=== PATIENT | male | born 1950 | race Caucasian/White ===

== ENCOUNTER 2016-03-09 10:16 | Observation (INO) | payer MEDICARE, OTHER ==
[2016-03-09] VITALS (9 sets, daily range): BP systolic 116–140; BP diastolic 62–79; PULSE 66–82; TEMP 97.9–98.9
[~2016-03-09] VITALS: Ht 177.8 cm; Wt 87.7 kg
[2016-03-09] MEDS ORDERED: CARDIZEM 60MG T60 MG PO (12:10)
[2016-03-09] MEDS ORDERED: SYNTHROID0.05 MG/TA PO (12:11)
[2016-03-09] MEDS ORDERED: MAG-OX 400400 MG/TAB PO (12:11)
[2016-03-09] MEDS ORDERED: ATIVAN 1MG T1 MG/TAB PO (12:11)
[2016-03-09] MEDS ORDERED: PRILOSEC 20MG20 MG PO (12:12)
[2016-03-09] MEDS ORDERED: PRAVACHOL10 MG PO (12:12)
[2016-03-09] MEDS ORDERED: NYAMYC100000 U/G TP (12:13)
[2016-03-09] MEDS ORDERED: DIGITEK0.25 MG PO (12:13)
[2016-03-09] MEDS ORDERED: GLUCOPHAGE500 MG/TAB PO (12:15)
[2016-03-09] MEDS ORDERED: XARELTO20 MG PO (12:16)
[2016-03-09] MEDS ORDERED: VENTOLIN0.09 MG IH (12:17)
[2016-03-09] MEDS ORDERED: RT SPIRIVA18 MCG IH (12:17)
[2016-03-09] MEDS ORDERED: RT ADVAIR 228 DISKUS IH (12:17)
[2016-03-09] MEDS ORDERED: IPRATROPIUM BROM3 M1 IH (12:18)
[2016-03-10 00:13] VITALS: BP 154/67; PULSE 86; TEMP 98.2
[2016-03-10 05:02] VITALS: BP 154/61; PULSE 83; TEMP 98.1
[2016-03-10 07:21] LABS: HEMATOCRIT 37.4 % (42.0-52.0); MEAN CELL VOLUME 82 fl (80.0-100.0); MEAN CORPUSCULAR HEMOGLOBIN 26 pg (27.0-31.0); MEAN CORPUSCULAR HGB CONC 32 g/dl (33.0-37.0); MEAN PLATELET VOLUME 9.1 fl (7.4-10.4); PLATELET COUNT 327 K/mm3 (130-400); RED BLOOD COUNT 4.56 M/mm3 (4.20-5.60); REDCELL DISTRIBUTION WIDTH-CV 13.7 % (11.5-14.5); WHITE BLOOD COUNT 11.1 K/mm3 (4.8-10.8)
[2016-03-10 07:39] LABS: HEMOGLOBIN 11.8 g/dl (13.5-18.0)
[2016-03-10 07:40] LABS: CALCIUM 9.1 mg/dL (8.4-10.2); CREATININE, serum 0.79 mg/dL (0.66-1.25); POTASSIUM 4.1 mmol/L (3.4-5.0)
[2016-03-10 09:44] VITALS: BP 144/70; PULSE 82; TEMP 97.9
[2016-03-10 13:39] VITALS: BP 129/6; PULSE 83; TEMP 97.8
[2016-03-10 18:00] VITALS: BP 134/62; PULSE 78; TEMP 98.1
[2016-03-10 21:45] VITALS: BP 114/54; PULSE 68; TEMP 98.5
[2016-03-11 01:44] VITALS: BP 131/60; PULSE 72; TEMP 98.5
[2016-03-11 04:44] VITALS: BP 132/70; PULSE 83; TEMP 97.2
[2016-03-11 07:17] LABS: BASO % 0.4 % (0.0-2.0); EOS # 0.3 (0.0-0.7); EOS % 3.1 % (0-4.0); GRAN # 7.3 (1.4-6.5); GRAN % 73.6 % (42.2-75.2); HEMATOCRIT 40.5 % (42.0-52.0); HEMOGLOBIN 12.6 g/dl (13.5-18.0); LYMPH # 1.3 (1.2-3.4); LYMPH % 13.5 % (20.0-51.0); MEAN CELL VOLUME 83 fl (80.0-100.0); MEAN CORPUSCULAR HEMOGLOBIN 26 pg (27.0-31.0); MEAN CORPUSCULAR HGB CONC 31 g/dl (33.0-37.0); MEAN PLATELET VOLUME 8.8 fl (7.4-10.4); MONO # 0.9 (0.1-0.6); MONO % 8.8 % (1.7-9.3); PLATELET COUNT 375 K/mm3 (130-400); RED BLOOD COUNT 4.89 M/mm3 (4.20-5.60); REDCELL DISTRIBUTION WIDTH-CV 13.9 % (11.5-14.5); WHITE BLOOD COUNT 9.9 K/mm3 (4.8-10.8)
[2016-03-11 07:40] LABS: CALCIUM 9.4 mg/dL (8.4-10.2); CREATININE, serum 0.83 mg/dL (0.66-1.25); POTASSIUM 4.1 mmol/L (3.4-5.0)
[2016-03-11 10:16] VITALS: BP 110/54; PULSE 76; TEMP 98.1
[2016-03-11 13:26] VITALS: BP 100/63; PULSE 88; TEMP 98.4
[2016-03-11] MEDS ORDERED: NORCO 325 MG-51 TAB PO (15:05)
[2016-03-11] MEDS ORDERED: PYRIDIUM 100MG100 MG PO (15:06)
== END 2016-03-11 16:00 | disposition home or self-care (01) ==
LOC: SDCO 10:16 → SURG 15:33 → SDCO 03-10 10:17 → SURG 03-10 10:20
PROVIDERS: Urology
DX: N40.1 Benign prostatic hyperplasia with lower urinary tract symptoms (principal); R33.8 Other retention of urine; R31.9 Hematuria, unspecified; N39.498 Other specified urinary incontinence; I10 Essential (primary) hypertension; E11.9 Type 2 diabetes mellitus without complications; F17.210 Nicotine dependence, cigarettes, uncomplicated; E78.5 Hyperlipidemia, unspecified; J44.9 Chronic obstructive pulmonary disease, unspecified; I48.0 Paroxysmal atrial fibrillation; Z79.84 Long term (current) use of oral hypoglycemic drugs
CPT/HCPCS: OP; 99204; 99214; 99222; 99222-AI; 99232-AI; G0378; J0690; J1815; J2250; J2704; J7030; J7512

== ENCOUNTER 2016-09-14 11:53 | Day surgery (SDC) | payer MEDICARE, OTHER ==
[~2016-09-14] VITALS: Ht 177.8 cm; Wt 88.9 kg
[~2016-09-14 11:53] MED LIST: ATIVAN 1MG T1 MG/TAB PO; CARDIZEM 60MG T60 MG PO; DIGITEK0.25 MG PO; GLUCOPHAGE500 MG/TAB PO; IPRATROPIUM BROM3 M1 IH; MAG-OX 400400 MG/TAB PO; NORCO 325 MG-51 TAB PO; NYAMYC100000 U/G TP; PRAVACHOL10 MG PO; PRILOSEC 20MG20 MG PO; PYRIDIUM 100MG100 MG PO; RT ADVAIR 228 DISKUS IH; RT SPIRIVA18 MCG IH; SYNTHROID0.05 MG/TA PO; VENTOLIN0.09 MG IH; XARELTO20 MG PO
[2016-09-14 12:25] VITALS: BP 126/81; PULSE 72; TEMP 97.8
[2016-09-14 13:01] LABS: HEMATOCRIT 32.1 % (42.0-52.0); HEMOGLOBIN 9.8 g/dl (13.5-18.0); MEAN CELL VOLUME 78 fl (80.0-100.0); MEAN CORPUSCULAR HEMOGLOBIN 24 pg (27.0-31.0); MEAN CORPUSCULAR HGB CONC 31 g/dl (33.0-37.0); MEAN PLATELET VOLUME 9.7 fl (7.4-10.4); PLATELET COUNT 325 K/mm3 (130-400); RED BLOOD COUNT 4.12 M/mm3 (4.20-5.60); REDCELL DISTRIBUTION WIDTH-CV 15.3 % (11.5-14.5); WHITE BLOOD COUNT 7.1 K/mm3 (4.8-10.8)
[2016-09-14] MEDS ORDERED: PRILOSEC 20MG20 MG PO (13:09)
[2016-09-14] MEDS ORDERED: LEVOXYL0.05 MG PO (13:10)
[2016-09-14] MEDS ORDERED: ATIVAN 1MG T1 MG/TAB PO (13:10)
[2016-09-14] MEDS ORDERED: TAMBOCOR 1100 MG/TAB PO (13:11)
[2016-09-14] MEDS ORDERED: CARDIZEM 60MG T60 MG PO (13:12)
[2016-09-14] MEDS ORDERED: MAG-OX 400400 MG/TAB PO (13:12)
[2016-09-14] MEDS ORDERED: XARELTO20 MG PO (13:13)
[2016-09-14] MEDS ORDERED: LANOXIN 0.25M0.25 MG PO (13:18)
[2016-09-14] MEDS ORDERED: PRAVACHOL10 MG PO (13:19)
[2016-09-14] MEDS ORDERED: ULTRAM 50MG TAB50 MG PO (13:22)
[2016-09-14] MEDS ORDERED: NITROSTAT0.4 MG/TAB SL (13:22)
[2016-09-14] MEDS ORDERED: FLEXERIL 1010 MG/TAB PO (13:22)
[2016-09-14] MEDS ORDERED: DAYPRO 600600 MG PO (13:22)
[2016-09-14] MEDS ORDERED: MUCINEX 60600 MG/TA1 PO (13:23)
[2016-09-14] MEDS ORDERED: ATARAX 10MG10 MG/TAB PO (13:23)
[2016-09-14] MEDS ORDERED: CLARITIN 1010 MG/TAB PO (13:24)
[2016-09-14] MEDS ORDERED: GLUCOSE4 G1 PO (13:24)
[2016-09-14 13:39] LABS: INR 1.5 (0.8-3.0); PROTHROMBIN TIME 17.2 SECONDS (9.7-12.8)
[2016-09-14 13:45] LABS: CALCIUM 8.9 mg/dL (8.4-10.2); CREATININE, serum 0.97 mg/dL (0.66-1.25); POTASSIUM 4.2 mmol/L (3.4-5.0)
[2016-09-14 14:30] VITALS: BP 127/75; PULSE 72
[2016-09-14 14:45] VITALS: BP 135/74; PULSE 70
[2016-09-14 15:00] VITALS: BP 127/69; PULSE 71
[2016-09-14 15:15] VITALS: BP 129/89; PULSE 68
[2016-09-14 15:30] VITALS: BP 127/75; PULSE 70
== END 2016-09-14 16:08 | disposition home or self-care (01) ==
LOC: COL.CAR 11:53
PROVIDERS: Internal Medicine Interventional Cardiology
DX: I48.0 Paroxysmal atrial fibrillation (principal); J44.9 Chronic obstructive pulmonary disease, unspecified; R60.0 Localized edema; I73.9 Peripheral vascular disease, unspecified; Z95.5 Presence of coronary angioplasty implant and graft; I25.2 Old myocardial infarction; I10 Essential (primary) hypertension; E78.5 Hyperlipidemia, unspecified; I25.10 Atherosclerotic heart disease of native coronary artery without angina pectoris; G47.33 Obstructive sleep apnea (adult) (pediatric); F17.210 Nicotine dependence, cigarettes, uncomplicated; K21.9 Gastro-esophageal reflux disease without esophagitis; E07.9 Disorder of thyroid, unspecified; E11.9 Type 2 diabetes mellitus without complications; N40.0 Benign prostatic hyperplasia without lower urinary tract symptoms; Z90.49 Acquired absence of other specified parts of digestive tract; Z90.79 Acquired absence of other genital organ(s)
CPT/HCPCS: G9654; J2250; J2704; J3010

== ENCOUNTER 2016-10-01 05:49 | Day surgery (SDC) | payer MEDICARE, OTHER ==
[~2016-10-01] VITALS: Ht 177.8 cm; Wt 89.0 kg
[2016-10-01] VITALS (854 sets, daily range): BP systolic 101–139; BP diastolic 66–110; PULSE 80–116; TEMP 97.4–98.5; O2SAT 73–100
[~2016-10-01 05:49] MED LIST changes: +ATARAX 10MG10 MG/TAB PO; +CLARITIN 1010 MG/TAB PO; +DAYPRO 600600 MG PO; +FLEXERIL 1010 MG/TAB PO; +GLUCOSE4 G1 PO; +LANOXIN 0.25M0.25 MG PO; +LEVOXYL0.05 MG PO; +MUCINEX 60600 MG/TA1 PO; +NITROSTAT0.4 MG/TAB SL; +TAMBOCOR 1100 MG/TAB PO; +ULTRAM 50MG TAB50 MG PO
[2016-10-01 06:37] LABS: MEAN CELL VOLUME 78 fl (80.0-100.0); MEAN CORPUSCULAR HGB CONC 29 g/dl (33.0-37.0); PLATELET COUNT 393 K/mm3 (130-400); RED BLOOD COUNT 4.04 M/mm3 (4.20-5.60); REDCELL DISTRIBUTION WIDTH-CV 15.4 % (11.5-14.5); WHITE BLOOD COUNT 7.2 K/mm3 (4.8-10.8)
[2016-10-01 06:38] LABS: HEMATOCRIT 31.6 % (42.0-52.0); HEMOGLOBIN 9.1 g/dl (13.5-18.0); MEAN CORPUSCULAR HEMOGLOBIN 23 pg (27.0-31.0)
[2016-10-01 06:45] LABS: CREATININE, serum 1.03 mg/dL (0.66-1.25); POTASSIUM 4.2 mmol/L (3.4-5.0)
[2016-10-01 06:48] LABS: INR 1.1 (0.8-3.0); PROTHROMBIN TIME 12.6 SECONDS (9.7-12.8)
[2016-10-02] VITALS (492 sets, daily range): BP systolic 100–120; BP diastolic 65–95; PULSE 104–108; TEMP 97.9–98.6; O2SAT 86–100
[2016-10-02 05:20] LABS: BASO # 0.1 (0.0-0.2); BASO % 0.7 % (0.0-2.0); EOS # 0.1 (0.0-0.7); EOS % 1.7 % (0-4.0); GRAN # 6.1 (1.4-6.5); GRAN % 79.6 % (42.2-75.2); HEMOGLOBIN 9.6 g/dl (13.5-18.0); LYMPH # 0.7 (1.2-3.4); LYMPH % 9.2 % (20.0-51.0); MEAN CELL VOLUME 77 fl (80.0-100.0); MEAN CORPUSCULAR HEMOGLOBIN 22 pg (27.0-31.0); MEAN CORPUSCULAR HGB CONC 29 g/dl (33.0-37.0); MEAN PLATELET VOLUME 8.7 fl (7.4-10.4); MONO # 0.7 (0.1-0.6); MONO % 8.5 % (1.7-9.3); PLATELET COUNT 395 K/mm3 (130-400); REDCELL DISTRIBUTION WIDTH-CV 15.3 % (11.5-14.5); WHITE BLOOD COUNT 7.7 K/mm3 (4.8-10.8)
[2016-10-02 05:32] LABS: CALCIUM 9.1 mg/dL (8.4-10.2); CREATININE, serum 0.98 mg/dL (0.66-1.25); POTASSIUM 4.5 mmol/L (3.4-5.0)
[2016-10-02] MEDS ORDERED: PLAVIX 75MG TAB75 MG PO (08:35)
[2016-10-02] MEDS ORDERED: ASPIRIN 81M81 MG/TA2 PO (08:35)
[2016-10-02] MEDS ORDERED: LIPITOR 80MG80 MG PO (08:37)
[2016-10-02] MEDS ORDERED: COREG 3.123.125 MG/T PO (10:14)
== END 2016-10-02 10:45 | disposition home or self-care (01) ==
LOC: COL.CAR 05:49 → ICU 09:05 → COL.CAR 10-02 10:45
PROVIDERS: Internal Medicine Interventional Cardiology
DX: I25.10 Atherosclerotic heart disease of native coronary artery without angina pectoris (principal); I48.0 Paroxysmal atrial fibrillation; J44.9 Chronic obstructive pulmonary disease, unspecified; I73.9 Peripheral vascular disease, unspecified; E78.5 Hyperlipidemia, unspecified; Z95.5 Presence of coronary angioplasty implant and graft; Z79.01 Long term (current) use of anticoagulants; Z79.84 Long term (current) use of oral hypoglycemic drugs
CPT/HCPCS: OP; C1725; C1760; C1769; C1874; C1887; C1894; C9600; J0583; J2250; J3010; Q9967

== ENCOUNTER 2016-11-29 11:55 | Day surgery (SDC) | payer MEDICARE, OTHER ==
[~2016-11-29] VITALS: Ht 177.8 cm; Wt 91.8 kg
[2016-11-29] VITALS (12 sets, daily range): BP systolic 115–133; BP diastolic 76–92; PULSE 92–115; TEMP 98.2
[~2016-11-29 11:55] MED LIST changes: +ASPIRIN 81M81 MG/TA2 PO; +COREG 3.123.125 MG/T PO; +LIPITOR 80MG80 MG PO; +PLAVIX 75MG TAB75 MG PO
[2016-11-29] MEDS ORDERED: RT ADVAIR HFA 1112 G IH (12:30)
[2016-11-29] MEDS ORDERED: ANORO IH (12:43)
[2016-11-29] MEDS ORDERED: ELIQUIS 5MG PO (12:48)
[2016-11-29 12:50] LABS: INR 1.5 (0.8-3.0); PROTHROMBIN TIME 17.2 SECONDS (9.7-12.8)
[2016-11-29 13:01] LABS: POTASSIUM 4.4 mmol/L (3.4-5.0)
[2016-11-29 13:36] LABS: THYROID STIMULATING HORMONE 1.09 uIU/mL (0.465-4.680)
[2016-11-29] MEDS ORDERED: MULTAQ400 MG PO (16:30)
== END 2016-11-29 16:56 | disposition home or self-care (01) ==
LOC: COL.CAR 11:55
PROVIDERS: Internal Medicine Interventional Cardiology
DX: I48.0 Paroxysmal atrial fibrillation (principal); I34.0 Nonrheumatic mitral (valve) insufficiency; I25.10 Atherosclerotic heart disease of native coronary artery without angina pectoris; J44.9 Chronic obstructive pulmonary disease, unspecified; I50.30 Unspecified diastolic (congestive) heart failure; Z79.01 Long term (current) use of anticoagulants; I11.0 Hypertensive heart disease with heart failure; E78.5 Hyperlipidemia, unspecified
CPT/HCPCS: J2250; J3010; J7030

== ENCOUNTER 2016-12-09 12:22 | Day surgery (SDC) | payer MEDICARE, OTHER ==
[~2016-12-09] VITALS: Ht 177.8 cm; Wt 77.4 kg
[~2016-12-09 12:22] MED LIST changes: +ANORO IH; +ELIQUIS 5MG PO; +MULTAQ400 MG PO; +RT ADVAIR HFA 1112 G IH
[2016-12-09 12:49] VITALS: BP 130/73; PULSE 85; TEMP 97.5
[2016-12-09] MEDS ORDERED: ALDACTONE 25MG25 M1 PO (13:17)
[2016-12-09] MEDS ORDERED: INCRUSE EL62.5 MCG/A IH (13:22)
[2016-12-09] MEDS ORDERED: CARDIZEM 60MG T60 MG PO (13:25)
[2016-12-09] MEDS ORDERED: FLEXERIL 1010 MG/TAB PO (13:26)
[2016-12-09 13:35] LABS: INR 1.5 (0.8-3.0); PROTHROMBIN TIME 16.6 SECONDS (9.7-12.8)
[2016-12-09 13:52] LABS: POTASSIUM 3.8 mmol/L (3.4-5.0)
[2016-12-09 14:23] LABS: THYROID STIMULATING HORMONE 1.7 uIU/mL (0.465-4.680)
[2016-12-09 15:28] VITALS: BP 118/61; PULSE 136; TEMP 98.3
[2016-12-09 21:24] VITALS: BP 116/65; PULSE 73; TEMP 98.1
[2016-12-10 00:39] VITALS: BP 115/55; PULSE 64; TEMP 97.6
[2016-12-10 04:10] VITALS: BP 119/61; PULSE 62; TEMP 98.1
[2016-12-10 07:40] VITALS: BP 124/62; PULSE 69; TEMP 97.6
[2016-12-10] MEDS ORDERED: PACERONE400 MG PO (09:57)
== END 2016-12-10 11:00 | disposition home or self-care (01) ==
LOC: SDCO 12:22 → MEDICAL 12:22 → INPTSU 13:21 → MEDICAL 13:26 → SDCO 12-10 11:00 → EDSTATUS 12-10 11:44
PROVIDERS: Internal Medicine Interventional Cardiology
DX: I48.91 Unspecified atrial fibrillation (principal); I25.10 Atherosclerotic heart disease of native coronary artery without angina pectoris; I10 Essential (primary) hypertension; J44.9 Chronic obstructive pulmonary disease, unspecified; E11.9 Type 2 diabetes mellitus without complications; I73.9 Peripheral vascular disease, unspecified; F17.210 Nicotine dependence, cigarettes, uncomplicated; I48.3 Typical atrial flutter; E78.5 Hyperlipidemia, unspecified; Z95.5 Presence of coronary angioplasty implant and graft; Z79.01 Long term (current) use of anticoagulants
CPT/HCPCS: G0378; G0379

== ENCOUNTER 2016-12-27 15:08 | Observation (INO) | payer MEDICARE, OTHER ==
[~2016-12-27] VITALS: Ht 177.8 cm; Wt 88.2 kg
[~2016-12-27 15:08] MED LIST changes: +ALDACTONE 25MG25 M1 PO; +INCRUSE EL62.5 MCG/A IH; +PACERONE400 MG PO
[2016-12-27 17:06] VITALS: BP 111/49; PULSE 90; TEMP 98.8
[2016-12-27 19:34] VITALS: BP 121/61; PULSE 104; TEMP 100.3
[2016-12-27 19:41] VITALS: BP 106/52; PULSE 43; TEMP 98.1
[2016-12-27 23:45] VITALS: BP 102/67; PULSE 70; TEMP 98.4
[2016-12-28] VITALS (13 sets, daily range): BP systolic 91–123; BP diastolic 49–93; PULSE 50–66; TEMP 97.6–97.9
[2016-12-28 07:09] LABS: BASO # 0.1 (0.0-0.2); BASO % 0.6 % (0.0-2.0); EOS % 0.5 % (0-4.0); GRAN # 5.9 (1.4-6.5); LYMPH # 1.7 (1.2-3.4); LYMPH % 19.8 % (20.0-51.0); MEAN CELL VOLUME 75 fl (80.0-100.0); MEAN CORPUSCULAR HGB CONC 27 g/dl (33.0-37.0); MEAN PLATELET VOLUME 9.6 fl (7.4-10.4); MONO # 0.8 (0.1-0.6); MONO % 9.7 % (1.7-9.3); PLATELET COUNT 393 K/mm3 (130-400); RED BLOOD COUNT 4.92 M/mm3 (4.20-5.60); REDCELL DISTRIBUTION WIDTH-CV 18.9 % (11.5-14.5)
[2016-12-28 07:10] LABS: HEMATOCRIT 36.8 % (42.0-52.0); MEAN CORPUSCULAR HEMOGLOBIN 20 pg (27.0-31.0)
[2016-12-28 07:25] LABS: INR 1.3 (0.8-3.0); PROTHROMBIN TIME 14.9 SECONDS (9.7-12.8)
[2016-12-28 07:32] LABS: ALBUMIN 3.7 gm/dL (3.5-5.0); BILIRUBIN,TOTAL 0.5 mg/dL (0.0-1.0); CALCIUM 8.7 mg/dL (8.4-10.2); CHOLESTEROL RISK RATIO 2.8; CREATININE, serum 1.2 mg/dL (0.66-1.25); POTASSIUM 4.8 mmol/L (3.4-5.0); TOTAL PROTEIN 6.8 gm/dL (6.4-8.2)
== END 2016-12-28 16:22 | disposition home or self-care (01) ==
LOC: MEDICAL 15:08
PROVIDERS: Internal Medicine Interventional Cardiology
DX: I48.92 Unspecified atrial flutter (principal); I25.10 Atherosclerotic heart disease of native coronary artery without angina pectoris; I10 Essential (primary) hypertension; Z95.5 Presence of coronary angioplasty implant and graft; Z79.01 Long term (current) use of anticoagulants; J44.9 Chronic obstructive pulmonary disease, unspecified; E78.5 Hyperlipidemia, unspecified
CPT/HCPCS: G0008; G0378; G0379; J0282; J7050; J7060

== ENCOUNTER 2017-01-27 11:47 | Day surgery (SDC) | payer MEDICARE, OTHER ==
[~2017-01-27] VITALS: Ht 177.8 cm; Wt 85.0 kg
[2017-01-27] VITALS (8 sets, daily range): BP systolic 100–144; BP diastolic 67–102; PULSE 92–128
[2017-01-27 12:27] LABS: POTASSIUM 4.5 mmol/L (3.4-5.0)
[2017-01-27 12:28] LABS: INR 1.1 (0.8-3.0)
[2017-01-27 13:04] LABS: THYROID STIMULATING HORMONE 2.47 uIU/mL (0.465-4.680)
[2017-01-28 08:57] LABS: HEMATOCRIT 37.4 % (42.0-52.0); MEAN CELL VOLUME 76 fl (80.0-100.0); MEAN CORPUSCULAR HEMOGLOBIN 20 pg (27.0-31.0); MEAN CORPUSCULAR HGB CONC 27 g/dl (33.0-37.0); MEAN PLATELET VOLUME 10.2 fl (7.4-10.4); PLATELET COUNT 429 K/mm3 (130-400); RED BLOOD COUNT 4.94 M/mm3 (4.20-5.60); WHITE BLOOD COUNT 8.1 K/mm3 (4.8-10.8)
== END 2017-01-27 16:06 | disposition home or self-care (01) ==
LOC: COL.CAR 11:47
PROVIDERS: Internal Medicine Interventional Cardiology
DX: I48.0 Paroxysmal atrial fibrillation (principal); Z88.1 Allergy status to other antibiotic agents
CPT/HCPCS: G9654; J2704; J7030

== ENCOUNTER 2019-12-03 07:27 | Outpatient (CLI) | payer MEDICARE, OTHER ==
[~2019-12-03] VITALS: Ht 177.8 cm; Wt 68.0 kg
[2019-12-03] MEDS ORDERED: TYLENOL W/COD1 UDTAB PO (07:50)
[2019-12-03 07:54] LABS: HEMOGLOBIN 10.8 g/dl (13.5-18.0); MEAN CELL VOLUME 78 fl (80.0-100.0); MEAN CORPUSCULAR HEMOGLOBIN 23 pg (27.0-31.0); MEAN CORPUSCULAR HGB CONC 30 g/dl (33.0-37.0); MEAN PLATELET VOLUME 9.7 fl (7.4-10.4); PLATELET COUNT 361 K/mm3 (130-400); RED BLOOD COUNT 4.64 M/mm3 (4.20-5.60); REDCELL DISTRIBUTION WIDTH-CV 16.4 % (11.5-14.5)
[2019-12-03] MEDS ORDERED: BENADRYL25 M2 PO (07:56)
[2019-12-03 07:59] LABS: PROTHROMBIN TIME 10.9 SECONDS (9.7-12.8)
[2019-12-03 08:02] LABS: CALCIUM 9.4 mg/dL (8.4-10.2); CREATININE, serum 0.83 (0.66-1.25); POTASSIUM 4.2 mmol/L (3.4-5.0)
[2019-12-03 08:05] VITALS: BP 133/75; PULSE 63; TEMP 97.8
[2019-12-03 08:05] LABS: HEMATOCRIT 36.4 % (42.0-52.0)
[2019-12-03 09:50] VITALS: BP 164/77; PULSE 69
[2019-12-03 10:05] VITALS: BP 147/82; PULSE 67
[2019-12-03 10:20] VITALS: BP 126/57; PULSE 66
[2019-12-03 10:35] VITALS: BP 154/84; PULSE 68
[2019-12-03 10:50] VITALS: BP 138/97; PULSE 65
--- NOTE | 2019-12-03 11:07 | NUR ---
Pt ambulates to restroom with steady gait. Has tolerated PO fluids without issue. He denies needs at this time. Awaiting completed DC instructions prior to discharge.
--- NOTE | 2019-12-03 11:51 | NUR ---
Pt assisted out by wheelchair to sister's car. IV was DC'd with catheter intact, and bleeding controlled at site. DC instructions reviewed and pt expresses understanding.
== END 2019-12-03 11:53 | disposition home or self-care (01) ==
LOC: COL.RAD 07:27
PROVIDERS: Internal Medicine Cardiovascular Disease
DX: Z95.818 Presence of other cardiac implants and grafts (principal)
CPT/HCPCS: J2704

== ENCOUNTER 2021-07-31 09:52 | Day surgery (SDC) | payer MEDICARE, OTHER ==
[~2021-07-31] VITALS: Ht 177.8 cm; Wt 70.3 kg
[~2021-07-31 09:52] MED LIST changes: +BENADRYL25 M2 PO; +TYLENOL W/COD1 UDTAB PO
[2021-07-31] MEDS ORDERED: NYAMYC100000 U/G TP (11:20)
[2021-07-31] MEDS ORDERED: EMGEL 2% TOP (11:21)
[2021-07-31] MEDS ORDERED: CATAPRES0.2 MG PO (11:21)
[2021-07-31] MEDS ORDERED: K-DUR 10 MEQ T10 MEQ PO (11:21)
[2021-07-31 11:35] VITALS: BP 125/82; PULSE 76; TEMP 97.1
--- NOTE | 2021-07-31 11:43 | NUR ---
Patient presented home medication list. Stated he did not know which medications he took this morning all he knew is that he took his morning medications this morning. Called primary doctors office to confirm medication list. Current medication list entered into [employer], but unable to know when last dose was due to patient.
[2021-07-31 12:40] VITALS: BP 92/63; PULSE 77; TEMP 97.4
--- NOTE | 2021-07-31 12:40 | NUR ---
PATIENT TO ROOM 8 VIA CART. ASSIST X 2 TO CHAIR. PATIENT IS ON 02 AT HOME, 2.5 LITERS. HE IS 100% ON ROOM AIR. VITAL SIGNS WNL. SISTER AT BEDSIDE. PATIENT REQUESTS COFFEE AND CHOCOLATE PUDDING. WILL CONTINUE TO MONITOR.
[2021-07-31 12:55] VITALS: BP 104/60; PULSE 68
--- NOTE | 2021-07-31 12:55 | NUR ---
PATIENT IS AWAKE AND ORIENTED. GLUCOSE IS 107, HE TOLERATED COFFEE AND PUDDING WELL. SISTER AT BEDSIDE. VITAL SIGNS WNL. DOCTOR AT BEDSIDE. WILL CONTINUE TO MONITOR.
[2021-07-31 13:10] VITALS: BP 100/69; PULSE 68
--- NOTE | 2021-07-31 13:10 | NUR ---
PATIENT IS READY FOR DISCHARGE. DOCTOR JUST LEFT THE ROOM. IV DISCONTINUED. VITALS WNL. PATIENT IS GETTING DRESSED, WILL TAKE HIM DOWN VIA WHEELCHAIR. SISTER IS PULLING UP THE CAR.
== END 2021-07-31 13:14 | disposition home or self-care (01) ==
LOC: SDCO 09:52
DX: Z12.11 Encounter for screening for malignant neoplasm of colon (principal); K57.30 Diverticulosis of large intestine without perforation or abscess without bleeding; Z80.0 Family history of malignant neoplasm of digestive organs
CPT/HCPCS: J2704; J7030